=== PATIENT | male | born 1950 | race Caucasian/White ===

== ENCOUNTER 2021-08-03 14:57 | Inpatient (IN) | payer MEDICARE ==
[2021-08-03 15:49] LABS: #Monocytes 0.7 10x3/uL (0.0-1.1); #Neutrophils 8.4 10x3/uL (1.5-8.4); %Basophils 0.1 % (0.0-2.0); %Lymphocytes 9.1 % (18.0-47.0); %Monocytes 7.3 % (0.0-10.0); %Neutrophils 83.2 % (40.0-75.0); Hemoglobin 14.8 g/dL (13.5-17.5); Mean Corpuscular HGB CONC 34.8 g/dL (32.0-36.0); Mean Corpuscular Hemoglobin 30.5 pg (27.0-33.0); Mean Corpuscular Volume 87.6 fl (81.2-95.1); Mean Platelet Volume 11.7 fl (7.4-10.4); Platelet Count 156 10x3/uL (150-450); RBC Distribution Width 12.6 % (11.5-14.5); Red Blood Cell (RBC) Count 4.85 10x6/uL (4.32-5.72); White Blood Cell (WBC) Count 10.1 10x3/uL (3.5-10.5)
[2021-08-03 16:02] LABS: ALT (SGPT) 52 U/L (8-55); AST (SGOT) 73 U/L (5-34); Albumin 3.6 g/dL (3.4-4.8); Alkaline Phosphatase 91 U/L (40-110); Anion Gap 16 mmol/L (10-20); BUN (Urea Nitrogen) 19 mg/dL (8.4-25.7); Bilirubin, Total 1.2 mg/dL (0.2-1.2); Calc. Creatinine Clearance 0 mL/min (70-130); Carbon Dioxide 23 mmol/L (23-31); Chloride 102 mmol/L (98-107); Globulin 3.7 g/dL (2.4-3.5); Glucose 170 mg/dL (83-110); Potassium 3.7 mmol/L (3.5-5.1); Protein, Total 7.3 g/dL (5.8-8.1); Sodium 137 mmol/L (136-145)
[2021-08-03 16:20] LABS: Magnesium 1.8 mg/dL (1.6-2.6)
[2021-08-03] MEDS ORDERED: Ventolin HFA Inhaler 60 PUFF INHALER ONE (16:32)
[2021-08-03] MEDS ORDERED: cefTRIAXone\\ROCEPHIN 2 GM VIAL ONE (16:44)
[2021-08-03] MEDS ORDERED: Azithromycin 500 MG VIAL ONE (16:44)
[2021-08-03 16:46] LABS: Bilirubin 1+ (Negative); Blood, Urine 25 (Negative); Clarity Clear (Clear); Glucose, Urine (Dipstick) 50 mg/dL (Negative); Ketone, Urine 15 mg/dL (Negative); Leukocyte 100 (Negative); Nitrite Positive (Negative); Protein, Urine (Dipstick) 100 mg/dl (Neg-Trace); Specific Gravity, Urine 1.015 (1.002-1.036); pH, Urine 6.5 (5.0-9.0)
[2021-08-03 16:57] LABS: Bacteria/HPF 2+ HPF (None Seen); RBC/HPF 0-3 HPF (0-3); Squamous Epithelial 0-3 HPF (0-3); WBC/HPF 0-3 HPF (0-3)
[2021-08-03 17:43] LABS: SARS-CoV-2 NAA Rapid Test DETECTED (NotDetected)
[2021-08-03 18:24] LABS: Lactic Acid 2.3 mmol/L (0.5-2.2)
[2021-08-03] MEDS ORDERED: HYDROcodone/Acetaminophen 5/325 mg Tablet PO PRN (19:16)
[2021-08-03] MEDS ORDERED: Ondansetron PF 4 MG/2 ML Vial IVP PRN (19:16)
[2021-08-03] MEDS ORDERED: Dextrose 50% Abboject 50 ML SYRINGE SLOW IVP PRN (19:16)
[2021-08-03] MEDS ORDERED: Zolpidem Tartrate 5 MG TAB PO PRN (19:16)
[2021-08-03] MEDS ORDERED: Dextrose 5% in Water 1,000 ML IV PRN (19:16)
[2021-08-03] MEDS ORDERED: Sodium Chloride 0.9% 1,000 ML IV SCH (19:30)
[2021-08-03] MEDS ORDERED: Ventolin HFA Inhaler 60 PUFF INHALER INH PRN (19:57)
[2021-08-03] MEDS ORDERED: Dexamethasone 4 mg/ml Vial SLOW IVP SCH (20:00)
[2021-08-03] MEDS ORDERED: Dexamethasone 10 MG/ML VIAL ONE (20:19)
[2021-08-03] MEDS ORDERED: Benzonatate 100 MG CAP ONE (20:19)
[2021-08-03] MEDS: Benzonatate 100 MG CAP PO SCH (20:23)
[2021-08-03] MEDS ORDERED: REMDESIVIR REQUEST IVPB PRN (21:03)
[2021-08-04 03:23] LABS: #Monocytes 0.3 10x3/uL (0.0-1.1); #Neutrophils 4.7 10x3/uL (1.5-8.4); %Lymphocytes 10.6 % (18.0-47.0); %Monocytes 4.7 % (0.0-10.0); %Neutrophils 84.2 % (40.0-75.0); Hemoglobin 13.5 g/dL (13.5-17.5); Mean Corpuscular HGB CONC 34.5 g/dL (32.0-36.0); Mean Corpuscular Hemoglobin 30.8 pg (27.0-33.0); Mean Corpuscular Volume 89.1 fl (81.2-95.1); Mean Platelet Volume 11.4 fl (7.4-10.4); Platelet Count 145 10x3/uL (150-450); RBC Distribution Width 12.8 % (11.5-14.5); Red Blood Cell (RBC) Count 4.39 10x6/uL (4.32-5.72); White Blood Cell (WBC) Count 5.6 10x3/uL (3.5-10.5)
[2021-08-04 03:37] LABS: Lactic Acid 1.8 mmol/L (0.5-2.2)
[2021-08-04 03:44] LABS: ALT (SGPT) 46 U/L (8-55); AST (SGOT) 60 U/L (5-34); Alkaline Phosphatase 83 U/L (40-110); Anion Gap 16 mmol/L (10-20); BUN (Urea Nitrogen) 19 mg/dL (8.4-25.7); Bilirubin, Total 0.8 mg/dL (0.2-1.2); CRP (Inflammatory) 18.66 mg/dL (= or < 0.5); Calc. Creatinine Clearance 0 mL/min (70-130); Calcium 8.1 mg/dL (7.8-10.44); Carbon Dioxide 21 mmol/L (23-31); Chloride 107 mmol/L (98-107); Globulin 3.1 g/dL (2.4-3.5); Glucose 212 mg/dL (83-110); Potassium 4.5 mmol/L (3.5-5.1); Protein, Total 6.1 g/dL (5.8-8.1); Sodium 139 mmol/L (136-145)
[2021-08-04] MEDS ORDERED: Cholecalciferol 1,000 UNITS (25 MCG) TAB ONE (08:06)
[2021-08-04] MEDS ORDERED: Ascorbic Acid 500 mg Chewable Tablet ONE (08:06)
[2021-08-04] MEDS ORDERED: Aspirin 81 mg Enteric Coated Tablet ONE (08:08)
[2021-08-04] MEDS ORDERED: Benzonatate 100 MG CAP ONE ×3 (08:08→20:18)
[2021-08-04] MEDS ORDERED: Enoxaparin Sodium 40 MG/0.4 ML SYRINGE ONE (08:08)
[2021-08-04] MEDS ORDERED: Amlodipine 5 MG TAB ONE (08:09)
[2021-08-04] MEDS: Zinc Gluconate 50 MG TAB PO SCH (08:45)
[2021-08-04] MEDS: Glimepiride 2 MG TAB PO SCH (08:45)
[2021-08-04] MEDS ORDERED: REMDESIVIR 200 MG in Sodium Chloride 0.9% 250 ML 210 ML IV SCH (09:00)
[2021-08-04] MEDS ORDERED: Zinc Gluconate 50 MG TAB PO SCH (09:00)
[2021-08-04] MEDS ORDERED: Enoxaparin Sodium 40 MG/0.4 ML SYRINGE SC SCH ×2 (09:00)
[2021-08-04] MEDS: Amlodipine 5 MG TAB PO SCH (09:02)
[2021-08-04] MEDS: Aspirin 81 mg Enteric Coated Tablet PO SCH (09:03)
[2021-08-04] MEDS: Benzonatate 100 MG CAP PO SCH ×3 (09:03→20:48)
[2021-08-04] MEDS: Ascorbic Acid 500 mg Chewable Tablet PO SCH (09:03)
[2021-08-04] MEDS: Cholecalciferol 1,000 UNITS (25 MCG) TAB PO SCH (09:03)
[2021-08-04] MEDS ORDERED: Enoxaparin Sodium 60 MG/0.6 ML SYRINGE SC SCH (12:00)
[2021-08-04] MEDS ORDERED: Dexamethasone 10 MG/ML VIAL ONE ×2 (12:48→20:18)
[2021-08-04] MEDS ORDERED: Ventolin HFA Inhaler 60 PUFF INHALER ONE (12:49)
[2021-08-04] MEDS ORDERED: Enoxaparin Sodium 60 MG/0.6 ML SYRINGE ONE (12:49)
[2021-08-04] MEDS: Dexamethasone 20 MG/5 ML VIAL SLOW IVP SCH ×2 (13:04→20:48)
[2021-08-04] MEDS ORDERED: Pharmacy to Dose BARICITINIB IVPB PRN (13:47)
[2021-08-04 14:57] LABS: Legionella Urinary Ag Negative (Negative); Strep pneumo Urine Ag NEGATIVE (NEGATIVE)
[2021-08-04] MEDS ORDERED: cefTRIAXone\\ROCEPHIN 1 GM VIAL ONE (16:59)
[2021-08-04] MEDS: cefTRIAXone\\ROCEPHIN 1 GM in Sodium Chloride 0.9% 100 ML IVPB SCH (17:00)
[2021-08-04] MEDS ORDERED: Enoxaparin Sodium 100 MG/ML SYRINGE ONE (20:18)
[2021-08-04] MEDS: Enoxaparin Sodium 100 MG/ML SYRINGE SC SCH (20:48)
[2021-08-04] MEDS: HumaLOG 300 UNITS/3 ML VIAL SC PRN (21:41)
[2021-08-05] MEDS ORDERED: Dexamethasone 10 MG/ML VIAL ONE (07:59)
[2021-08-05] MEDS ORDERED: Benzonatate 100 MG CAP ONE (07:59)
[2021-08-05] MEDS ORDERED: Aspirin Chewable 81 MG TAB ONE (07:59)
[2021-08-05] MEDS ORDERED: Amlodipine 5 MG TAB ONE (08:00)
[2021-08-05] MEDS ORDERED: Enoxaparin Sodium 100 MG/ML SYRINGE ONE (08:00)
[2021-08-05] MEDS ORDERED: Cholecalciferol 1,000 UNITS (25 MCG) TAB ONE (08:02)
[2021-08-05] MEDS ORDERED: Ascorbic Acid 500 mg Chewable Tablet ONE (08:02)
[2021-08-05] MEDS: Amlodipine 5 MG TAB PO SCH (08:21)
[2021-08-05] MEDS: Benzonatate 100 MG CAP PO SCH ×3 (08:22→21:14)
[2021-08-05] MEDS: Aspirin 81 mg Enteric Coated Tablet PO SCH (08:22)
[2021-08-05] MEDS: Zinc Gluconate 50 MG TAB PO SCH (08:22)
[2021-08-05] MEDS: Ascorbic Acid 500 mg Chewable Tablet PO SCH (08:22)
[2021-08-05] MEDS: Cholecalciferol 1,000 UNITS (25 MCG) TAB PO SCH (08:22)
[2021-08-05] MEDS: Enoxaparin Sodium 100 MG/ML SYRINGE SC SCH ×2 (08:22→21:14)
[2021-08-05] MEDS: Dexamethasone 20 MG/5 ML VIAL SLOW IVP SCH ×2 (08:22→21:14)
[2021-08-05] MEDS: HumaLOG 300 UNITS/3 ML VIAL SC PRN ×3 (08:24→17:40)
[2021-08-05] MEDS ORDERED: REMDESIVIR 100 MG in Sodium Chloride 0.9% 250 ML 230 ML IV SCH (09:00)
[2021-08-05 09:36] LABS: #Monocytes 0.4 10x3/uL (0.0-1.1); #Neutrophils 10.3 10x3/uL (1.5-8.4); %Basophils 0.1 % (0.0-2.0); %Lymphocytes 6.6 % (18.0-47.0); %Monocytes 3.7 % (0.0-10.0); %Neutrophils 89.2 % (40.0-75.0); Hemoglobin 13.7 g/dL (13.5-17.5); Mean Corpuscular HGB CONC 35.1 g/dL (32.0-36.0); Mean Corpuscular Hemoglobin 31.1 pg (27.0-33.0); Mean Corpuscular Volume 88.4 fl (81.2-95.1); Mean Platelet Volume 11.4 fl (7.4-10.4); Platelet Count 199 10x3/uL (150-450); Red Blood Cell (RBC) Count 4.41 10x6/uL (4.32-5.72); White Blood Cell (WBC) Count 11.5 10x3/uL (3.5-10.5)
[2021-08-05 10:09] LABS: Anion Gap 15 mmol/L (10-20); BUN (Urea Nitrogen) 26 mg/dL (8.4-25.7); CRP (Inflammatory) 10.59 mg/dL (= or < 0.5); Calc. Creatinine Clearance 89 mL/min (70-130); Calcium 8.2 mg/dL (7.8-10.44); Carbon Dioxide 19 mmol/L (23-31); Chloride 111 mmol/L (98-107); Glucose 226 mg/dL (83-110); Potassium 3.6 mmol/L (3.5-5.1); Sodium 141 mmol/L (136-145)
[2021-08-05] MEDS: Glimepiride 2 MG TAB PO SCH (11:13)
[2021-08-05] MEDS: cefTRIAXone\\ROCEPHIN 1 GM in Sodium Chloride 0.9% 100 ML IVPB SCH (15:00)
[2021-08-05] MEDS: Guaifenesin DM 100-10/5 ML UDCUP PO PRN (21:14)
[2021-08-06] MEDS: HumaLOG 300 UNITS/3 ML VIAL SC PRN ×5 (06:15→21:11)
[2021-08-06] MEDS ORDERED: Enoxaparin Sodium 100 MG/ML SYRINGE ONE (07:36)
[2021-08-06] MEDS: Enoxaparin Sodium 100 MG/ML SYRINGE SC SCH ×2 (07:40→20:44)
[2021-08-06] MEDS: Acetaminophen 325 MG TAB PO PRN (07:41)
[2021-08-06] MEDS: Glimepiride 2 MG TAB PO SCH (07:43)
[2021-08-06] MEDS: Amlodipine 5 MG TAB PO SCH (07:43)
[2021-08-06] MEDS: Ascorbic Acid 500 mg Chewable Tablet PO SCH (07:45)
[2021-08-06] MEDS: Aspirin 81 mg Enteric Coated Tablet PO SCH (07:45)
[2021-08-06] MEDS: Benzonatate 100 MG CAP PO SCH ×3 (07:45→20:43)
[2021-08-06] MEDS: Cholecalciferol 1,000 UNITS (25 MCG) TAB PO SCH (07:46)
[2021-08-06] MEDS: Dexamethasone 20 MG/5 ML VIAL SLOW IVP SCH ×2 (07:46→20:44)
[2021-08-06] MEDS: Zinc Gluconate 50 MG TAB PO SCH (07:48)
[2021-08-06] MEDS: Guaifenesin DM 100-10/5 ML UDCUP PO PRN ×2 (07:49→20:43)
[2021-08-06 10:13] LABS: #Monocytes 0.5 10x3/uL (0.0-1.1); #Neutrophils 13.1 10x3/uL (1.5-8.4); %Basophils 0.1 % (0.0-2.0); %Monocytes 3.5 % (0.0-10.0); %Neutrophils 90.4 % (40.0-75.0); Hemoglobin 13.4 g/dL (13.5-17.5); Mean Corpuscular HGB CONC 35.3 g/dL (32.0-36.0); Mean Corpuscular Hemoglobin 31.4 pg (27.0-33.0); Mean Platelet Volume 11.4 fl (7.4-10.4); Platelet Count 210 10x3/uL (150-450); RBC Distribution Width 13.1 % (11.5-14.5); Red Blood Cell (RBC) Count 4.27 10x6/uL (4.32-5.72); White Blood Cell (WBC) Count 14.5 10x3/uL (3.5-10.5)
[2021-08-06 10:28] LABS: Anion Gap 15 mmol/L (10-20); BUN (Urea Nitrogen) 29 mg/dL (8.4-25.7); CRP (Inflammatory) 4.32 mg/dL (= or < 0.5); Calc. Creatinine Clearance 93 mL/min (70-130); Calcium 7.6 mg/dL (7.8-10.44); Carbon Dioxide 17 mmol/L (23-31); Chloride 113 mmol/L (98-107); Glucose 290 mg/dL (83-110); Potassium 3.9 mmol/L (3.5-5.1); Sodium 141 mmol/L (136-145)
[2021-08-06] MEDS: cefTRIAXone\\ROCEPHIN 1 GM in Sodium Chloride 0.9% 100 ML IVPB SCH (15:25)
[2021-08-06] MEDS: Calcium Carbonate 500 MG ChewTAB PO PRN (20:43)
[2021-08-07] MEDS: HumaLOG 300 UNITS/3 ML VIAL SC PRN ×5 (05:05→21:04)
[2021-08-07] MEDS: Dexamethasone 20 MG/5 ML VIAL SLOW IVP SCH ×2 (08:04→21:02)
[2021-08-07] MEDS: Enoxaparin Sodium 100 MG/ML SYRINGE SC SCH ×2 (08:04→21:03)
[2021-08-07] MEDS: Cholecalciferol 1,000 UNITS (25 MCG) TAB PO SCH (08:06)
[2021-08-07] MEDS: Amlodipine 5 MG TAB PO SCH (08:06)
[2021-08-07] MEDS: Zinc Gluconate 50 MG TAB PO SCH (08:06)
[2021-08-07] MEDS: Glimepiride 2 MG TAB PO SCH (08:06)
[2021-08-07] MEDS: Aspirin 81 mg Enteric Coated Tablet PO SCH (08:06)
[2021-08-07] MEDS: Benzonatate 100 MG CAP PO SCH ×3 (08:08→21:02)
[2021-08-07] MEDS: Ascorbic Acid 500 mg Chewable Tablet PO SCH (08:08)
[2021-08-07] MEDS ORDERED: Insulin Regular 300 UNITS/3 ML VIAL SC PRN (12:12)
[2021-08-07] MEDS: cefTRIAXone\\ROCEPHIN 1 GM in Sodium Chloride 0.9% 100 ML IVPB SCH (15:38)
[2021-08-07] MEDS: Lantus 1000 UNITS/10 ML VIAL SC SCH (21:05)
[2021-08-08] MEDS: Calcium Carbonate 500 MG ChewTAB PO PRN (02:20)
[2021-08-08 06:15] LABS: Anion Gap 14 mmol/L (10-20); BUN (Urea Nitrogen) 29 mg/dL (8.4-25.7); Calc. Creatinine Clearance 100 mL/min (70-130); Calcium 7.6 mg/dL (7.8-10.44); Carbon Dioxide 20 mmol/L (23-31); Chloride 110 mmol/L (98-107); Glucose 271 mg/dL (83-110); Potassium 4.1 mmol/L (3.5-5.1); Sodium 140 mmol/L (136-145)
[2021-08-08 06:16] LABS: #Monocytes 0.5 10x3/uL (0.0-1.1); %Basophils 0.1 % (0.0-2.0); %Lymphocytes 4.6 % (18.0-47.0); %Monocytes 3.7 % (0.0-10.0); %Neutrophils 90.2 % (40.0-75.0); Hemoglobin 13.4 g/dL (13.5-17.5); Mean Corpuscular HGB CONC 34.4 g/dL (32.0-36.0); Mean Corpuscular Hemoglobin 30.7 pg (27.0-33.0); Mean Corpuscular Volume 89.2 fl (81.2-95.1); Mean Platelet Volume 11.7 fl (7.4-10.4); Platelet Count 220 10x3/uL (150-450); RBC Distribution Width 12.4 % (11.5-14.5); Red Blood Cell (RBC) Count 4.36 10x6/uL (4.32-5.72); White Blood Cell (WBC) Count 13.3 10x3/uL (3.5-10.5)
[2021-08-08] MEDS: Benzonatate 100 MG CAP PO SCH ×3 (08:46→21:22)
[2021-08-08] MEDS: Zinc Gluconate 50 MG TAB PO SCH (08:46)
[2021-08-08] MEDS: Ascorbic Acid 500 mg Chewable Tablet PO SCH (08:46)
[2021-08-08] MEDS: Amlodipine 5 MG TAB PO SCH (08:47)
[2021-08-08] MEDS: Enoxaparin Sodium 100 MG/ML SYRINGE SC SCH ×2 (08:48→21:22)
[2021-08-08] MEDS: Aspirin 81 mg Enteric Coated Tablet PO SCH (08:48)
[2021-08-08] MEDS: Cholecalciferol 1,000 UNITS (25 MCG) TAB PO SCH (08:48)
[2021-08-08] MEDS: Glimepiride 2 MG TAB PO SCH (08:48)
[2021-08-08] MEDS: Dexamethasone 20 MG/5 ML VIAL SLOW IVP SCH ×2 (08:49→21:21)
[2021-08-08] MEDS: Lantus 1000 UNITS/10 ML VIAL SC SCH ×2 (08:50→21:23)
[2021-08-08] MEDS: HumaLOG 300 UNITS/3 ML VIAL SC PRN ×4 (08:50→21:23)
[2021-08-08] MEDS: cefTRIAXone\\ROCEPHIN 1 GM in Sodium Chloride 0.9% 100 ML IVPB SCH (15:32)
[2021-08-09] MEDS: Zinc Gluconate 50 MG TAB PO SCH (08:00)
[2021-08-09] MEDS: Aspirin 81 mg Enteric Coated Tablet PO SCH (08:00)
[2021-08-09] MEDS: Amlodipine 5 MG TAB PO SCH (08:00)
[2021-08-09] MEDS: Cholecalciferol 1,000 UNITS (25 MCG) TAB PO SCH (08:01)
[2021-08-09] MEDS: Enoxaparin Sodium 100 MG/ML SYRINGE SC SCH ×2 (08:01→22:15)
[2021-08-09] MEDS: Ascorbic Acid 500 mg Chewable Tablet PO SCH (08:01)
[2021-08-09] MEDS: Dexamethasone 20 MG/5 ML VIAL SLOW IVP SCH ×2 (08:02→22:16)
[2021-08-09] MEDS: Lantus 1000 UNITS/10 ML VIAL SC SCH ×3 (08:05→22:17)
[2021-08-09] MEDS: HumaLOG 300 UNITS/3 ML VIAL SC PRN ×4 (08:05→22:17)
[2021-08-09] MEDS: Glimepiride 2 MG TAB PO SCH (08:09)
[2021-08-09] MEDS: Benzonatate 100 MG CAP PO SCH ×3 (09:18→22:15)
[2021-08-10 05:23] LABS: ALT (SGPT) 108 U/L (8-55); AST (SGOT) 57 U/L (5-34); Albumin 2.8 g/dL (3.4-4.8); Alkaline Phosphatase 90 U/L (40-110); Anion Gap 11 mmol/L (10-20); BUN (Urea Nitrogen) 27 mg/dL (8.4-25.7); Bilirubin, Total 0.8 mg/dL (0.2-1.2); Calc. Creatinine Clearance 102 mL/min (70-130); Calcium 7.8 mg/dL (7.8-10.44); Carbon Dioxide 23 mmol/L (23-31); Chloride 109 mmol/L (98-107); Globulin 2.8 g/dL (2.4-3.5); Glucose 142 mg/dL (83-110); Potassium 3.9 mmol/L (3.5-5.1); Protein, Total 5.6 g/dL (5.8-8.1); Sodium 139 mmol/L (136-145)
[2021-08-10 05:51] LABS: #Monocytes 0.9 10x3/uL (0.0-1.1); #Neutrophils 14.6 10x3/uL (1.5-8.4); %Basophils 0.1 % (0.0-2.0); %Lymphocytes 7.1 % (18.0-47.0); %Monocytes 5.5 % (0.0-10.0); %Neutrophils 86.5 % (40.0-75.0); Hemoglobin 13.9 g/dL (13.5-17.5); Mean Corpuscular HGB CONC 34.9 g/dL (32.0-36.0); Mean Corpuscular Hemoglobin 30.8 pg (27.0-33.0); Mean Corpuscular Volume 88.2 fl (81.2-95.1); Mean Platelet Volume 11.9 fl (7.4-10.4); Platelet Count 249 10x3/uL (150-450); RBC Distribution Width 12.7 % (11.5-14.5); Red Blood Cell (RBC) Count 4.51 10x6/uL (4.32-5.72); White Blood Cell (WBC) Count 16.9 10x3/uL (3.5-10.5)
[2021-08-10] MEDS: Ascorbic Acid 500 mg Chewable Tablet PO SCH ×2 (07:43→07:44)
[2021-08-10] MEDS: Benzonatate 100 MG CAP PO SCH ×3 (07:44→21:27)
[2021-08-10] MEDS: Zinc Gluconate 50 MG TAB PO SCH (07:45)
[2021-08-10] MEDS: Enoxaparin Sodium 100 MG/ML SYRINGE SC SCH ×2 (07:45→21:27)
[2021-08-10] MEDS: Aspirin 81 mg Enteric Coated Tablet PO SCH (07:46)
[2021-08-10] MEDS: Amlodipine 5 MG TAB PO SCH (07:46)
[2021-08-10] MEDS: Cholecalciferol 1,000 UNITS (25 MCG) TAB PO SCH (07:46)
[2021-08-10] MEDS: Lantus 1000 UNITS/10 ML VIAL SC SCH ×3 (07:47→21:28)
[2021-08-10] MEDS: Dexamethasone 20 MG/5 ML VIAL SLOW IVP SCH (07:47)
[2021-08-10] MEDS: HumaLOG 300 UNITS/3 ML VIAL SC PRN ×3 (11:54→21:29)
[2021-08-10] MEDS: Acetaminophen 325 MG TAB PO PRN (12:00)
[2021-08-10 12:04] LABS: Hemoglobin A1c 7.1 % (4.0-6.0)
[2021-08-11] MEDS: Enoxaparin Sodium 100 MG/ML SYRINGE SC SCH (08:06)
[2021-08-11] MEDS: Zinc Gluconate 50 MG TAB PO SCH (08:06)
[2021-08-11] MEDS: Cholecalciferol 1,000 UNITS (25 MCG) TAB PO SCH (08:06)
[2021-08-11] MEDS: Amlodipine 5 MG TAB PO SCH (08:07)
[2021-08-11] MEDS: Aspirin 81 mg Enteric Coated Tablet PO SCH (08:07)
[2021-08-11] MEDS: Benzonatate 100 MG CAP PO SCH ×3 (08:08→21:59)
[2021-08-11] MEDS: Ascorbic Acid 500 mg Chewable Tablet PO SCH (08:08)
[2021-08-11] MEDS: Dexamethasone 20 MG/5 ML VIAL SLOW IVP SCH (08:09)
[2021-08-11] MEDS: Lantus 1000 UNITS/10 ML VIAL SC SCH (08:11)
[2021-08-11] MEDS: metFORMIN 500 MG TAB PO SCH (16:28)
[2021-08-11] MEDS ORDERED: Lantus 1000 UNITS/10 ML VIAL SC SCH (21:00)
[2021-08-11] MEDS: Apixaban 5 MG TAB PO SCH (21:59)
[2021-08-12] MEDS: Aspirin 81 mg Enteric Coated Tablet PO SCH (08:07)
[2021-08-12] MEDS: metFORMIN 500 MG TAB PO SCH ×2 (08:07→17:51)
[2021-08-12] MEDS: Apixaban 5 MG TAB PO SCH (08:07)
[2021-08-12] MEDS: Benzonatate 100 MG CAP PO SCH ×2 (08:08→16:03)
[2021-08-12] MEDS: Cholecalciferol 1,000 UNITS (25 MCG) TAB PO SCH (08:08)
[2021-08-12] MEDS: Dexamethasone 20 MG/5 ML VIAL SLOW IVP SCH (08:08)
[2021-08-12] MEDS: Amlodipine 5 MG TAB PO SCH (08:08)
[2021-08-12] MEDS: Zinc Gluconate 50 MG TAB PO SCH (08:08)
[2021-08-12] MEDS ORDERED: Lantus 1000 UNITS/10 ML VIAL SC SCH (09:00)
[2021-08-12] MEDS: HumaLOG 300 UNITS/3 ML VIAL SC PRN ×2 (12:52→17:52)
[2021-08-12 17:07] VITALS: BP 119/70; TEMP 98.1
== END 2021-08-12 18:25 | disposition home or self-care (01) | DRG 871 ==
LOC: CSHERS 14:57 → CSHIMCU 18:27 → CSHERHOLD 18:31 → CSHICU 08-05 10:06 → CSHTELE 08-11 21:01
PROVIDERS: ADMIT Family Medicine; ATTEND Family Medicine
PROC: 8E0ZXY6 Isolation (ICD-10-PCS; 2021-08-03)
PROC: XW033E5 Introduction of Remdesivir Anti-infective into Peripheral Vein, Percutaneous Approach, New Technology Group 5 (ICD-10-PCS; principal; 2021-08-04)
DX: A41.89 Other specified sepsis (principal); U07.1 COVID-19; J96.01 Acute respiratory failure with hypoxia; Z66 Do not resuscitate; J12.82 Pneumonia due to coronavirus disease 2019; I26.99 Other pulmonary embolism without acute cor pulmonale; N17.9 Acute kidney failure, unspecified; D68.69 Other thrombophilia; E87.2 Acidosis; J84.10 Pulmonary fibrosis, unspecified; I10 Essential (primary) hypertension; E78.2 Mixed hyperlipidemia; E11.65 Type 2 diabetes mellitus with hyperglycemia; K21.9 Gastro-esophageal reflux disease without esophagitis; Z88.1 Allergy status to other antibiotic agents
CPT/HCPCS: 0240U; 36415; 36416; 71045; 71275; 80048; 80053; 81003; 81015; 83036; 83605; 83735; 83880; 84484; 85025; 85379; 86140; 87040; 87086; 87449; 87899; 93005; 93010; 93306; 93970; 94640; 94760; 96365; 96367; J0248; J0456; J0696; J1100; J1650; J1815; J3490; J7050